=== PATIENT | female | born 1995 | race Caucasian/White ===

== ENCOUNTER 2016-04-21 12:59 | Emergency (ER) | payer BC, OTHER ==
[~2016-04-21] VITALS: Ht 160 cm; Wt 66.0 kg
[~2016-04-21 12:59] MED LIST: PRENTAB26 PO
[2016-04-21 13:04] VITALS: TEMP 37.2; Ht 160 cm; Wt 66.0 kg
[2016-04-21] MEDS ORDERED: ALBUT/IPRATROP 3MG/0.5MG NEB 3 ML VIAL INH STA (13:22)
[2016-04-21] MEDS ORDERED: ACETAMINOPHEN 500 MG TAB PO STA (13:22)
[2016-04-21] MEDS ORDERED: ALBUTEROL HFA 8 GM INHALER INH ONE (13:30)
--- NOTE | 2016-04-21 13:33 | EMERGENCY ROOM VISIT NOTE ---
History Report prepared by Estelita: Ramon Roman Under the Supervision of: Dr. Rickey Amador M.D. First contact with patient: 13:09 Chief Complaint: COUGH Stated Complaint: COUGH AND MUCUS Nursing Triage Summary: pt here with prod cough x 3 days. History of Present Illness The patient is a 21 year old female who presents to the Emergency Room with complaints of a persistent cough that began two days prior to arrival. The patient is also currently experiencing mucous congestion in her chest and throat. She has been taking cough medicine, but has not taken any dosages today. She presents to the emergency room with her daughter and significant other, who are both experiencing similar symptoms. Source of History: patient Onset: Two days [employer] Position: other (Respiratory) Quality: other (Cough) Timing: other (Persistent) Note: Pt also complains of chest/throat congestion. Review of Systems See HPI for pertinent positives & negatives. A total of 10 systems reviewed and were otherwise negative. Past Medical & Surgical Medical Problems: (1) Abdominal cramping affecting , antepartum (2) Amniotic fluid leaking Family History Diabetes mellitus Heart disease Hypertension Social History Smoking Status: Never Smoker Marital Status: in relationship Housing Status: lives with family Occupation Status: employed Current/Historical Medications Scheduled Azithromycin (Zithromax), 250 MG PO DAILY Prednisone (Prednisone Tab), 0 PO DAILY Allergies Coded Allergies: No Known Allergies (Unverified , 04/21/16) Physical Exam Vital Signs Date Time Temp Pulse Resp B/P Pulse Ox O2 Delivery O2 Flow Rate FiO2 04/21/16 14:45 90 18 127/72 99 04/21/16 13:04 37.2 120 16 110/78 95 Room Air Physical Exam GENERAL: Patient is a healthy-appearing well-nourished HEAD: Normocephalic atraumatic EYES: Ocular movements intact pupils equal and react to light OROPHARYNX mucous membranes are moist no exudates present no erythema or edema present NECK: Supple no nuchal rigidity CHEST: Good equal expansion LUNGS: Clear and equal to auscultation CARDIAC: Normal S1 and S2 ABDOMEN: Soft nontender no guarding BACK: No CVA tenderness EXTREMITIES: No pain upon palpation normal muscle strength in all groups no clubbing cyanosis or edema NEURO: Patient is following commands is answering questions appropriately. Alert and oriented x3 Cranial Nerves 2-12 grossly intact Medical Decision & Procedures ER Provider Diagnostic Interpretation: Radiology results as stated below per my review and radiologist interpretation: SINGLE VIEW CHEST CLINICAL HISTORY: Cough. FINDINGS: An AP, portable, upright chest radiograph is obtained. No prior studies are available for comparison at the time of dictation. The cardiomediastinal silhouette is unremarkable. The lungs and pleural spaces are clear. No pneumothorax is seen. The bony thorax is grossly intact. There is mild thoracic scoliosis. IMPRESSION: No active disease in the chest. Electronically signed by: Tree Ma M.D. 04/21/2016 1:50 PM Dictated Date/Time: 04/21/2016 1:50 PM Laboratory Results Test 04/21/16 13:13 Influenza Type A (RT-PCR) Neg for Influ A (NEG) Influenza Type A Antigen Neg for Influ A (NEG) Influenza Type B Antigen Neg for Influ B (NEG) Influenza Type B (RT-PCR) Neg for Influ B (NEG) Labs reviewed by ED physician. Medications Administered Medications (Trade) Dose Ordered Sig/Rashida Route Start Time Stop Time Status Last Admin Dose Admin Albuterol/ Ipratropium (Duoneb) 3 ml NOW STAT INH 04/21/16 13:22 04/21/16 13:23 DC 04/21/16 14:19 3 ML Albuterol (Ventolin Hfa Inhaler) 2 puffs NOW ONCE INH 04/21/16 13:30 04/21/16 13:31 DC 04/21/16 14:18 2 PUFFS Acetaminophen (Tylenol Tab) 1,000 mg NOW STAT PO 04/21/16 13:22 04/21/16 13:23 DC 04/21/16 14:15 1,000 MG Prednisone (PredniSONE TAB) 60 mg NOW STAT PO 04/21/16 14:07 04/21/16 14:08 DC 04/21/16 14:15 60 MG Azithromycin (Zithromax Tab) 500 mg NOW ONCE PO 04/21/16 14:15 04/21/16 14:16 DC 04/21/16 14:16 500 MG ED Course 1318: Past medical records reviewed. The patient was evaluated in room C1. A complete history and physical examination was performed. 1322: Ordered Acetaminophen 1000 mg PO, Duoneb 3 mL INH. 1330: Ordered Albuterol 2 puffs INH 1407: Ordered Prednisone 60 mg PO. 1415: Ordered Azithromycin 500 mg PO. 1421: Upon reexamination the patient is resting comfortably in bed. I discussed results and treatment plan with the patient. She verbalizes agreement and understanding. The patient is ready for discharge. Medical Decision Differential diagnosis: Etiologies such as viral syndrome, otitis, pharyngitis, pneumonia, influenza, meningitis, urinary tract infection, sepsis, bacteremia, as well as others were entertained. This is a 21-year-old female who presents emergency department complaining of cough. The patient presents with both her daughter as well as her who' ve all had similar symptoms. The patient's daughter did test positive for RSV. She is negative for flu and the chest x-ray is clear. Patient was given a breathing treatment in the emergency department continued on and inhaler at home for bronchitis. The patient was started on prednisone in the emergency department as well as azithromycin. Patient will be continued on these at home and was in agreement with the treatment plan. She is well in appearance and has no evidence of meningitis or encephalitis on examination and I feel safe enough to be discharged home. Impression Primary Impression: Bronchitis Scribe Attestation The scribe's documentation has been prepared under my direction and personally reviewed by me in its entirety. I confirm that the note above accurately reflects all work, treatment, procedures, and medical decision making performed by me. Departure Information Dispostion Home / Self-Care Prescriptions Azithromycin (ZITHROMAX) 250 Mg Tab 250 MG PO DAILY, #4 TAB Prov: Rickey Amador MD 04/21/16 Prednisone (Prednisone Tab) 20 Mg Tab 0 PO DAILY, #7 TAB 2 TABS DAILY FOR 2 DAYS, THEN 1 TAB DAILY FOR 2 DAYS, THEN 1/2 TAB DAILY FOR 2 DAYS. Prov: Rickey Amador MD 04/21/16 Referrals No Doctor, Assigned (PCP) Forms HOME CARE DOCUMENTATION FORM, IMPORTANT VISIT INFORMATION Patient Instructions My [facility] [employer] Additional Instructions Use inhaler twice every 6 hours Take 600 mg Ibuprofen every 6 hours Take 1000 mg Tylenol every 6 hours Culture results are usually available in approx 48 hours You have been examined and treated today on an emergency basis only. This is not a substitute for, or an effort to provide, complete comprehensive medical care. It is impossible to recognize and treat all injuries or illnesses in a single emergency department visit. It is therefore important that you follow up closely with your PCP. Call as soon as possible for an appointment. Thank you for your time and consideration. I look forward to speaking with you again soon. Please don't hesitate to call us if you have any questions.
--- NOTE | 2016-04-21 13:52 | DIAGNOSTIC IMAGING REPORT ---
SINGLE VIEW CHEST CLINICAL HISTORY: Cough. FINDINGS: An AP, portable, upright chest radiograph is obtained. No prior studies are available for comparison at the time of dictation. The cardiomediastinal silhouette is unremarkable. The lungs and pleural spaces are clear. No pneumothorax is seen. The bony thorax is grossly intact. There is mild thoracic scoliosis. IMPRESSION: No active disease in the chest. Electronically signed by: Tree Ma M.D. 04/21/2016 1:50 PM Dictated Date/Time: 04/21/2016 1:50 PM
[2016-04-21] MEDS ORDERED: PRED20TA2 PO (14:09)
[2016-04-21] MEDS ORDERED: AZIT250T5 PO (14:10)
[2016-04-21] MEDS ORDERED: AZITHROMYCIN 250 MG TAB PO ONE (14:15)
[2016-04-21 14:45] VITALS: BP 127/72; PULSE 90; O2SAT 99
[2016-04-21 15:30] LABS: INFLUENZA A PCR Neg for Influ A (NEG); INFLUENZA B PCR Neg for Influ B (NEG)
== END 2016-04-21 14:45 | disposition home or self-care (01) ==
LOC: C.EDB 13:00 → C.EDC 14:45
DX: J40 Bronchitis, not specified as acute or chronic (principal)